=== PATIENT | female | born 1985 | race Caucasian/White ===

== ENCOUNTER 2018-11-06 15:10 | Emergency (ER) | payer SELFPAY ==
[2018-11-06 15:28] VITALS: BP 127/78
[2018-11-06] MEDS ORDERED: KETOROLAC TROMETHAMINE 60 MG/2 ML VIAL IM ONE (15:29)
--- NOTE | 2018-11-06 15:31 | ED Physician Documentation ---
General Adult - HISTORIAN Historian: patient - HPI Stated Complaint: Right sided back pain Chief Complaint: General Adult Onset: days ago Timing: still present Severity: moderate Further Comments: yes (Pt is a 33 yo female with back pain that has been going on for about a week and has been getting worse. Pt helped out at a yard sale about a week ago and was lifting furniture and tv's when back pain first occurred. She did not have any acute event.) - ROS CONST: no problems EYES/ENT: none CVS/RESP: none GI/: none MS/SKIN/LYMPH: back pain - PAST HX Past History: other (BTL, C-sec, cholecystectomy) Allergies/Adverse Reactions: Allergies Allergy/AdvReac Type Severity Reaction Status Date / Time No Known Allergies Allergy Verified 11/06/18 15:21 Home Medications: Ambulatory Orders Medication Instructions Recorded NK 09/14/13 - SOCIAL HX Smoking History: non-smoker - FAMILY HX Family History: No - VITAL SIGNS Vital Signs: Vital Signs Temp Pulse Resp BP Pulse Ox 97.2 F L 79 18 127/78 98 11/06/18 15:10 11/06/18 15:10 11/06/18 15:10 11/06/18 15:10 11/06/18 15:10 - REVIEWED ASSESSMENTS Nursing Assessment Reviewed: Yes Vitals Reviewed: Yes Progress - Progress Progress: Toradol 60 mg IM Diazepam 10 mg IM improved ED Results Lab/Radiology - Orders Orders: ED Orders Category Date Time Status Ketorolac Tromethamine [Toradol] Med 11/06/18 15:29 Once 60 mg IM NOW ONE diazePAM [Valium] Med 11/06/18 15:29 Once 10 mg IM NOW ONE General Adult Physical Exam - PHYSICAL EXAM GENERAL APPEARANCE: moderate distress NECK: normal inspection, supple RESPIRATORY: no resp distress, chest non-tender, breath sounds normal CVS: reg rate & rhythm, heart sounds normal BACK: normal inspection, other (paraspinal muscle spasm, lumbar region) EXTREMITIES: non-tender, normal range of motion, no evidence of injury, no edema NEURO: oriented X3, motor nml, sensation nml, other (DTR's wnl) Discharge Clincal Impression: back pain/muscle spasm Referrals: Primary Doctor,No [Primary Care Provider] - Condition: Good Disposition: 01 HOME, SELF-CARE Decision to Admit: NO Decision Time: 16:02
== END 2018-11-06 16:12 | disposition home or self-care (01) ==
LOC: ED 15:10
DX: M62.838 Other muscle spasm (principal)
CPT/HCPCS: 99282; 99284; J1885; J3360; 96372